=== PATIENT | male | born 1980 | race Caucasian/White ===

== ENCOUNTER 2018-05-04 00:43 | Emergency (ER) | payer OTHER ==
[2018-05-04] MEDS ORDERED: KETOROLAC TROMETHAMINE 30MG/ML ONE (01:44)
[2018-05-04] MEDS ORDERED: ORPHENADRINE CITRATE 30 MG/ML ML ONE (02:27)
[2018-05-04] MEDS ORDERED: LIDOCAINE 5% TOPICAL PATCH TP ONE (02:27)
== END 2018-05-04 03:51 | disposition home or self-care (01) ==
LOC: EDH 00:43
DX: S29.092A Other injury of muscle and tendon of back wall of thorax, initial encounter (principal); Z88.0 Allergy status to penicillin; W11.XXXA Fall on and from ladder, initial encounter; Y93.89 Activity, other specified; Y92.89 Other specified places as the place of occurrence of the external cause; Y99.8 Other external cause status
CPT/HCPCS: 71046; 96372 ×2; 99284; J1885; J2360

== ENCOUNTER 2023-01-06 20:59 | Emergency (ER) | payer OTHER ==
[~2023-01-06] VITALS: Ht 182.9 cm; Wt 95.3 kg
[~2023-01-06 20:59] MED LIST: CEPH500B PO; HYDR-4060 PO; IBUP-2070 PO
[2023-01-06 22:19] LABS: APPEARANCE,URINE CLEAR (CLEAR); BILIRUBIN,URINE NEGATIVE (NEGATIVE); COLOR,URINE YELLOW (YELLOW); GLUCOSE, URINE (UA) NEGATIVE (NEGATIVE); KETONES,URINE NEGATIVE (NEGATIVE); LEUKOCYTE ESTERASE ,URINE NEGATIVE Leu/uL (NEGATIVE); NITRATE,URINE NEGATIVE (NEGATIVE); OCCULT BLOOD,URINE NEGATIVE (NEGATIVE); PROTEIN,URINE 30 mg/dL (NEGATIVE); UROBILINOGEN,URINE 0.2 mg/dL (0.2-1.0)
[2023-01-06 22:22] LABS: MUCUS,URINE RARE LPF (None Seen); RBC,URINE 0-1 /HPF (0-1); WBC,URINE 0-1 /HPF (0-1)
[2023-01-06 22:41] LABS: BASOPHILS % (AUTO) 0.6 % (0.0-5.0); EOSINOPHILS % (AUTO) 0.2 % (0.0-8.0); HEMATOCRIT 43.5 % (42-54); LYMPHOCYTES % (AUTO) 8.2 % (21.0-51.0); MEAN CORPUSCULAR HEMOGLOBIN 29.2 pg (27.0-33.0); MONOCYTES % (AUTO) 7.9 % (3.0-13.0); NEUTROPHILS % (AUTO) 82.8 % (40.0-77.0); PLATELET COUNT (AUTO) 217 K/uL (130-400); RED BLOOD CELL COUNT(AUTO) 5.06 MIL/uL (4.50-6.20); RED CELL DISTRIBUTION WIDTH 12.9 % (11.0-15.5); WHITE BLOOD COUNT (AUTO) 6.5 K/uL (4.8-10.8)
[2023-01-06 23:07] LABS: CREATININE 1.3 mg/dL (0.5-1.5); POTASSIUM 3.5 mmol/L (3.5-5.1)
[2023-01-06 23:11] LABS: ALBUMIN 4.1 g/dL (3.5-5.0); MAGNESIUM 1.7 mg/dL (1.80-2.40); TOTAL PROTEIN, SERUM 7.7 g/dL (6.0-8.3)
[2023-01-07] MEDS ORDERED: METOCLOPRAMIDE 10 MG/2 ML VIAL IVP ONE
[2023-01-07] MEDS ORDERED: KETOROLAC 30MG VIAL (30MG/ML) IVP ONE
[2023-01-07] MEDS ORDERED: FAMOTIDINE 20MG VIAL IV ONE
[2023-01-07] MEDS ORDERED: ACETAMINOPHEN 500 MG TABLET PO ONE (00:30)
[2023-01-07] MEDS ORDERED: METO-296 PO (00:52)
[2023-01-07] MEDS ORDERED: KETO10 PO (00:52)
[2023-01-07] MEDS ORDERED: FAMO-136 PO (00:52)
[2023-01-07] MEDS ORDERED: TAMS-1 PO (00:52)
[2023-01-07 01:45] VITALS: BP 116/68
== END 2023-01-07 01:50 | disposition home or self-care (01) ==
LOC: EDH 20:59
DX: N20.0 Calculus of kidney (principal); Z20.822 Contact with and (suspected) exposure to COVID-19
CPT/HCPCS: 99285; 74176; 87635; 83735; 80053; 83690; 85025; 87804 ×2; 83605; 81001; 36415; 96374; 96375; C9803; J3490; J1885; J2765

== ENCOUNTER → 2023-07-22 | Outpatient (CLI) | payer OTHER ==
[~2023-07-22] MED LIST changes: +FAMO-136 PO; +KETO10 PO; +METO-296 PO; +TAMS-1 PO
== END | disposition home or self-care (01) ==
LOC: RAH 12:49
PROVIDERS: ATTEND Physician Assistant Medical
DX: M17.12 Unilateral primary osteoarthritis, left knee (principal); M16.12 Unilateral primary osteoarthritis, left hip; M25.462 Effusion, left knee; M25.561 Pain in right knee; M19.072 Primary osteoarthritis, left ankle and foot
CPT/HCPCS: 73721